=== PATIENT | male | born 1985 | race Caucasian/White ===

== ENCOUNTER 2017-02-12 11:31 | Inpatient (IN) ==
[2017-02-12] MEDS ORDERED: NS 1,000 ML IV ONE ×2 (12:00→12:50)
[2017-02-12] MEDS ORDERED: THIAMINE 200mg/2ml INJECTION IVP ONE (12:01)
[2017-02-12] MEDS ORDERED: ALBUTEROL/IPRATROPIUM 2.5mg-0.5mg/3ml NEB AEROSOL ONE (12:06)
--- NOTE | 2017-02-12 12:08 | Emergency Department Report ---
General Adult HPI - General Chief complaint: Substance Abuse Stated complaint: over dose,fallen,hand injury Time Seen by Provider: 02/12/17 11:55 - History of Present Illness HPI narrative: Patient was brought to the emergency department by his landlord. Apparently patient has been hospitalized in [place] for pneumonia and was just released 3 days ago. He is a heavy drinker, states drinks every day. After discharge from the hospital, patient states he started drinking vodka. Patient presents obviously inebriated with slurred speech. Serum alcohol level is 511. Patient' s room air saturations are 85% and lungs with crackles bilaterally. Patient states he smokes between 3 and 4 packs of cigarettes a day and also drinks liquor every day however is unsure of the amount. States he does have withdrawal seizures having the last seizure approximately 1 month ago. Patient hydrated and labs are checked. Chest x-ray was poor quality with no obvious infiltrate noted however patient remained tachycardic with room air sats of 85% so a CT scan was done. This did indicate probable pneumonia possibly in both lobes and probable mild pulmonary edema. Patient does not know for sure if he was discharged on any antibiotics however states that he is not currently taking any antibiotics post hospital discharge MD complaint: intoxication, recent pneumonia Onset (ago): day(s) Associated symptoms: cough - Related Data Home Medications Medication Instructions Recorded Confirmed Gabapentin 300 mg PO TID PRN 02/12/17 02/12/17 Lamotrigine [Lamictal] 100 mg PO HS 02/12/17 02/12/17 Lurasidone [Latuda] 40 mg PO DAILY 02/12/17 02/12/17 Methocarbamol [Robaxin] 500 mg PO BID PRN 02/12/17 02/12/17 Naltrexone [Revia] 50 mg PO PM 02/12/17 02/12/17 Sertraline [Zoloft] 125 mg PO DAILY 02/12/17 02/12/17 Allergies Allergy/AdvReac Type Severity Reaction Status Date / Time amoxicillin [From Augmentin] Allergy Severe Hives Verified 02/12/17 12:14 clavulanic acid Allergy Severe Hives Verified 02/12/17 12:14 [From Augmentin] Penicillins Allergy Severe Hives Verified 02/12/17 12:14 bismuth subsalicylate Allergy Unknown Verified 02/12/17 12:14 [From Pepto-Bismol] Review of Systems All systems: reviewed and negative except as stated Constitutional: Reports: weakness. Denies: fever, chills Eyes: Denies: eye pain, eye discharge ENT: Denies: ear pain, throat pain Cardiovascular: Denies: chest pain, palpitations Respiratory: Reports: as per HPI, cough Gastrointestinal: Denies: abdominal pain, nausea, vomiting, diarrhea Genitourinary: Denies: urgency Neurological: Denies: headache, weakness, numbness Allergic/Immunologic: Denies: facial swelling, urticaria PFSH Patient Stated Medical History Seizures Yes: 3 DAYS AGO Asthma Yes Pneumonia Yes Bipolar Disorder Yes Substance Use Disorder Yes - Social History Smoking status: Current every day smoker Physical Exam - General General appearance: alert, appears intoxicated, other (obviously inebriated) - Normal Exams: Head:: Normocephalic without trauma Eyes:: Pupils are PERRLA w/ EOMI, No scleral icterus, irritation, or foreign bodies noted Neck:: Full range of motion, without adenopathy, JVD, bruits or thyromegaly Cardiovascular:: Regular rate and rhythm, without murmur or gallop, Pulses 2+ all extremities, capillary refill, <2 seconds all extremities Abdomen:: Bowel sounds positive, soft, non-tender, non-distended, no hepatosplenomegaly, masses or bruits noted Lymphatic:: No lymphadenopathy, or lymphedema noted Musculoskeletal:: No tenderness, or deformity noted, good range of motion, all extremities Integumentary:: No rashes, hives, or bruising noted, hair and nails, without abnormality Neurological:: Patient is alert - Expanded Respiratory Exam Location: Left: rales, Right: rales, Upper: rales, Lower: rales Course - Reevaluation(s) Reevaluation #1: Patient ETOH level 511. Patient is eating and much more alert and talkative. Room air sats remain mid 80's and remains tachyl at 110. Due to prior hospitalization and dx of pneumonia, will obtain CTA to r/o PE. Reevaluation #2: CTA indicates mild pneumonia to right middle lobe and atelectasis or additional mild pneumonia in left upper lobe. In addition concern for Left ventricular enlargement and fatty metamorphosis of the liver. Patient remains hypoxic on room air with sats 85%; requires 2l/NC to keep sats above 93%. Hospitalist paged for possible admission. Vital Signs Temperature 98.3 F 02/12/17 11:35 Pulse Rate 105 H 02/12/17 11:35 Respiratory Rate 16 02/12/17 11:35 Blood Pressure 129/86 02/12/17 11:35 Pulse Oximetry 85 L 02/12/17 11:35 Temperature 98.3 F 02/12/17 11:35 Pulse Rate 103 H 02/12/17 14:15 Respiratory Rate 18 02/12/17 12:11 Blood Pressure 127/74 02/12/17 14:15 Pulse Oximetry 92 02/12/17 14:15 Medical Decision Making - MDM Narrative Medical decision making narrative: Patient recently discharged from that hospital with pneumonia, CT scan indicates pneumonia continues. Will start cefepime and Levaquin per HAP guidelines. Blood cultures, venous lactate and pro-calcitonin have already been drawn. Pro-calcitonin was normal, lactate elevated at 2.7. Patient stated ALLERGY to contrast medium so therefore was premedicated with Benadryl 50 mg and Solu-Medrol [address] scan. - Lab Data Result diagrams: 02/12/17 12:21 02/12/17 12:21 Lab Results 02/12/17 02/12/17 02/12/17 Range/Units 12:13 12:13 12:21 WBC 4.8 (4.5-11.0) T/MM3 RBC 4.35 L (4.50-5.90) M/MM3 Hgb 14.6 (13.5-17.5) GM/DL Hct 44.0 (41-53) % MCV 101.1 H (80-100) UM3 MCH 33.6 (26-34) UUG MCHC 33.2 (31-37) GM/DL RDW Std Deviation 50.3 H (36.9-50.2) FL Plt Count 268 (130-400) T/MM3 MPV 8.7 L (9.4-12.4) UM3 Immature Gran % (Auto) 0.2 (0.0-0.5) % Neut % (Auto) 55.3 (33-66) % Lymph % (Auto) 35.4 (23-45) % [place] % (Auto) 6.0 (0-9.0) % Eos % (Auto) 1.2 (0-4) % Baso % (Auto) 1.9 (0-2) % Neut # (Auto) 2.7 (1.8-7.7) T/MM3 Lymph # (Auto) 1.7 (1-4.8) T/MM3 [place] # (Auto) 0.3 (0-0.8) T/MM3 Eos # (Auto) 0.1 (0-0.5) T/MM3 Baso # (Auto) 0.1 (0-0.2) T/MM3 Abs Immat Gran (auto) 0.01 (0.00-0.03) T/MM3 Turbidity (0-20) Sodium (134-144) MEQ/L Potassium (3.6-5) MEQ/L Chloride (98-107) MEQ/L Carbon Dioxide (22-30) MEQ/L Anion Gap (5-15) MEQ/L BUN (9-20) MG/DL Creatinine (0.8-1.5) MG/DL GFR Calculation BUN/Creatinine Ratio (6-26) RATIO Glucose (75-110) MG/DL Calculated Osmolality (261-280) MOSM/KG Calcium (8.4-10.2) MG/DL Total Bilirubin (0.20-1.30) MG/DL Icterus Index (0-7) AST (17-59) U/L ALT (21-72) U/L Alkaline Phosphatase (38-126) U/L Total Protein (6.3-8.2) G/DL Albumin (3.5-5.0) G/DL Globulin (2.4-3.6) G/DL Albumin/Globulin Ratio (1.1-2.2) RATIO Lipase (23-300) U/L Plasma Lactate 2.7 H (0.6-2.2) MMOL/L Procalcitonin 0.05 NG/ML Specimen Hemolysis (0-25) Alcohol, Quantitative (<10) MG/DL 02/12/17 Range/Units 12:21 WBC (4.5-11.0) T/MM3 RBC (4.50-5.90) M/MM3 Hgb (13.5-17.5) GM/DL Hct (41-53) % MCV (80-100) UM3 MCH (26-34) UUG MCHC (31-37) GM/DL RDW Std Deviation (36.9-50.2) FL Plt Count (130-400) T/MM3 MPV (9.4-12.4) UM3 Immature Gran % (Auto) (0.0-0.5) % Neut % (Auto) (33-66) % Lymph % (Auto) (23-45) % [place] % (Auto) (0-9.0) % Eos % (Auto) (0-4) % Baso % (Auto) (0-2) % Neut # (Auto) (1.8-7.7) T/MM3 Lymph # (Auto) (1-4.8) T/MM3 [place] # (Auto) (0-0.8) T/MM3 Eos # (Auto) (0-0.5) T/MM3 Baso # (Auto) (0-0.2) T/MM3 Abs Immat Gran (auto) (0.00-0.03) T/MM3 Turbidity < 20 (0-20) Sodium 152 H (134-144) MEQ/L Potassium 3.9 (3.6-5) MEQ/L Chloride 108 H (98-107) MEQ/L Carbon Dioxide 27 (22-30) MEQ/L Anion Gap 17 H (5-15) MEQ/L BUN 9.0 (9-20) MG/DL Creatinine 0.7 L (0.8-1.5) MG/DL GFR Calculation 132 BUN/Creatinine Ratio 13 (6-26) RATIO Glucose 94 (75-110) MG/DL Calculated Osmolality 291 H (261-280) MOSM/KG Calcium 8.2 L (8.4-10.2) MG/DL Total Bilirubin 0.30 (0.20-1.30) MG/DL Icterus Index < 2 (0-7) AST 138 H (17-59) U/L ALT 156 H (21-72) U/L Alkaline Phosphatase 107 (38-126) U/L Total Protein 7.1 (6.3-8.2) G/DL Albumin 4.1 (3.5-5.0) G/DL Globulin 3.0 (2.4-3.6) G/DL Albumin/Globulin Ratio 1.4 (1.1-2.2) RATIO Lipase 290 (23-300) U/L Plasma Lactate (0.6-2.2) MMOL/L Procalcitonin NG/ML Specimen Hemolysis < 15 (0-25) Alcohol, Quantitative 511 (<10) MG/DL Disposition Clinical Impression: Pneumonia, Hypoxia, Intoxication Prescriptions: No Action Sertraline [Zoloft] 125 mg PO DAILY Lurasidone [Latuda] 40 mg PO DAILY Gabapentin 300 mg PO TID PRN PRN Reason: Prn Orders Naltrexone [Revia] 50 mg PO PM Lamotrigine [Lamictal] 100 mg PO HS Methocarbamol [Robaxin] 500 mg PO BID PRN PRN Reason: Muscle Pain - Seen By: midlevel
[2017-02-12] MEDS: SALINE FLUSH 10ml SYRINGE IVF PRN ×2 (12:37→13:35)
[2017-02-12] MEDS ORDERED: DiphenhydrAMINE 50 MG/ML INJECTION IVP ONE (13:31)
[2017-02-12] MEDS ORDERED: METHYLPREDNISOLONE SOD SUCC 125mg/2ml INJECTION IVP ONE (13:33)
[2017-02-12] MEDS ORDERED: IOHEXOL 350mg/ml 75ml INJECTION ONE (13:44)
[2017-02-12] MEDS ORDERED: NS 100 ML ONE (13:44)
[2017-02-12] MEDS ORDERED: SALINE FLUSH 10ml SYRINGE ONE (13:45)
[2017-02-12] MEDS ORDERED: CEFEPIME 1 GM in NS 100 ML IV ONE (14:44)
[2017-02-12] MEDS ORDERED: LEVOFLOXACIN PB 750 MG/150 ML BAG IV SCH (14:45)
[2017-02-12] MEDS ORDERED: OXAZEPAM 30 MG CAPSULE PO PRN (15:55)
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
[2017-02-12 16:18] VITALS: BMI 23.6
[2017-02-12] MEDS: ALBUTEROL/IPRATROPIUM 2.5mg-0.5mg/3ml NEB AEROSOL SCH ×2 (16:39→20:40)
[2017-02-12] MEDS: D5W 1,000 ML IV SCH (17:07)
[2017-02-12] MEDS ORDERED: TETANUS IM ONE (17:19)
[2017-02-12] MEDS ORDERED: DIPHTHERIA IM ONE (17:19)
[2017-02-13] MEDS: OXAZEPAM 30 MG CAPSULE PO PRN ×3 (00:16→22:22)
[2017-02-13] MEDS: D5W 1,000 ML IV SCH (03:56)
--- NOTE | 2017-02-13 08:48 | CT Scan Report ---
Indication: tachy, hypoxic ., recent hospitalization PROCEDURE: CT angio pulm emboli: Encounter: Initial Comparison: None Technique: Axial CT pulmonary angiographic phase images were performed through the chest after the administration of intravenous contrast. Coronal and Sagittal MIP reconstructed images were created and reviewed. Automated Exposure Control and Iterative Reconstruction dose reducing techniques were utilized. Contrast: Omnipaque 350 70 mL Findings: Pulmonary arteries: Exam is diagnostic to the subsegmental pulmonary arterial level. No filling defects identified to suggest a pulmonary embolus. Other findings: Linear atelectasis in the left upper lobe. Mild dependent atelectasis in the lower lobes. Small groundglass nodules in the right middle lobe could be infectious or inflammatory. No pleural effusion or pneumothorax. No axillary adenopathy. Small prevascular nodes are mildly enlarged. These could be reactive. Heart size is enlarged. No pericardial effusion. The upper abdomen shows severe fatty infiltration of the liver. Impression: 1. No pulmonary embolus. 2. Probable infectious or inflammatory infiltrates in the right middle lobe. 3. Cardiomegaly and fatty liver. There is a preliminary report by [facility]. .
--- NOTE | 2017-02-13 08:49 | XRay Report ---
Indication: pneumonia 3 days ago PROCEDURE: XR chest 1V: Encounter: Initial Comparison: Chest CT from the same date Findings: Linear atelectasis in the left upper lobe. The right middle lobe infiltrates are not apparent radiographically. The lungs are radiographically clear otherwise. No pleural effusion or pneumothorax. Cardiac silhouette is given limits of normal in size. Mediastinal contours and pulmonary vascularity appear normal. Impression: Left upper lobe atelectasis. .
--- NOTE | 2017-02-13 08:51 | XRay Report ---
Indication: fall PROCEDURE: XR hand LT min 3V: Encounter: Initial Comparison: None Findings: There is no acute fracture, dislocation or malalignment identified. Dense 1 to 2 mm foreign bodies adjacent to the long finger proximal phalanx and fifth metacarpal shaft. Impression: No acute osseous abnormality. Foreign bodies. .
[2017-02-13] MEDS: ALBUTEROL/IPRATROPIUM 2.5mg-0.5mg/3ml NEB AEROSOL SCH ×4 (09:19→21:10)
[2017-02-13] MEDS: LEVOFLOXACIN PB 750 MG/150 ML BAG IV SCH (09:20)
--- NOTE | 2017-02-13 10:05 | XRay Report ---
Indication: puncture wound PROCEDURE: XR foot LT 2V: Encounter: Initial Comparison: None Findings: There is no acute fracture, dislocation or malalignment identified. No radiopaque foreign body appreciated. Impression: No acute osseous abnormality. .
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
--- NOTE | 2017-02-13 11:54 | Progress Note ---
- Date 02/13/17 Subjective: Leo is seen today in follow up. He is sleeping, easily awakened. Reports feeling fairly well. Continues to demonstrate a cough, but denies SOA. He has obvious tremors with stretching, but denies them. Denies feeling "shaky" . Attempted to discuss discharge plans with him- he states he normally follows with the DC clinic in [facility]. States that they assist with him getting medications as outpatient. States that he has antibiotics, but cannot tells me what he has. Denies difficulty in obtaining meds, but cannot clearly me tell me how/where he gets medication- states "in [place]"- I understand that he has given varying answers in regards to the medications. He reports that his foot is "fine", no pain or tenderness. Chart is reviewed for additional information. Objective Vital signs: Temperature 98.6 F 02/13/17 07:36 Pulse Rate 92 02/13/17 08:14 Respiratory Rate 18 02/13/17 07:36 Blood Pressure 154/98 H 02/13/17 07:36 Pulse Oximetry 97 02/13/17 07:36 Rhythm: Normal Sinus Rhythm, Sinus Tachycardia Height/Weight/BMI: Height 1.83 m Weight 77.3 kg Body Mass Index 23.6 - Constitutional Present: mild distress, disheveled, cooperative Comments: Poor historian. Restless. Multiple tattoos, and appears to have healing self- cutting injuries on arms. - Routine HEENT Exam Head: Present: normocephalic, hematoma (small bruise left evangelical, appears old. ) Eye: Present: EOMI. Absent: periorbital ecchymosis, periorbital swelling, periorbital tenderness ENT: Present: mucous membranes dry - Routine Respiratory Exam Present: decreased breath sounds, rhonchi (occasional faint rhonchi is appreciated. ), diminished air movement. Absent: dyspnea, wheezes - Routine Cardiovascular Exam Present: RRR, S1, S2, no murmur - Routine Abdominal Exam Present: soft, normoactive bowel sounds, non distended, non tender - Routine Extremities Exam Present: no edema, non tender, full ROM, pulses intact - Routine Musculoskeletal Exam Musculoskeletal: Present: normal strength, no joint swelling, moving extremities well, other (Nail injury left foot- no redness, warmth, swelling.) - Routine Skin Exam Present: intact, dry, warm - Routine Neurological Exam Present: alert, moving all extremities, tremors - Routine Psychiatric Exam Present: cooperative. Absent: normal affect, normal thought process, good insight, good judgment Results - Labs CBC & Chem 7: 02/13/17 04:31 02/13/17 04:31 - Impressions FOOT Impression: No acute osseous abnormality. . Assessment and Plan (1) Intoxication Current visit: Yes Status: Acute (2) Sepsis Current visit: Yes Status: Acute (3) Pneumonia Current visit: Yes Status: Acute Assessment and Plan: Impression: Sepsis- Tachycardia, Hypoxia, Elevated lactate- 2.7 Pneumonia Result failure with hypoxemia-requiring 3-4 liters on admission Acute alcohol intoxication-present on admission Elevated LFTs Hypernatremia Hx of ETOH withdrawal seizure Mental Health DO Puncture wound left foot- nail (tD given) Hx Sz. DO Plan 02/13/17 *Continue Levaquin for CAP, left foot wound. Monitor for szs given hx and known ETOH abuse. Continue nebs. Assess viral resp panel and CXR. *Acute ETOH intoxication-improving. Repeat ETOH level for resolution confirmation. Check UDS. Labs are improving. Suspect elevated LFTS due to ETOH,but will assess Hep Panel due to multiple tattoos. Consulting psychiatry for assessment. Resume home mental health medications as appropriate. Start ETOH W/D orders. Mild-moderate W/D currently per CIWA. Continue PRN serax & Ativan. Add metoprolol due to developing HTN. May need to up-titrate. Add supportive b-vitamins. Check mag level. Add PPI due to increased risk of Gastritis. *Continue to monitor foot due to nail-related puncture wound. *Pt. does not want sz. prophylaxis tx. He does not drive. Transportation home will be an issue, and housing may be an issue as well. Will need SW involvement upon dismissal. D/W Dr. Duenas. DVT Prophylaxis: SCD's GI Prophylaxis: Protonix Resuscitation Status: Full Code - Physician Narrative Physician: Monty Duenas MD Narrative: Date: 02/13/17 Time: 1705 I have independently interviewed and examined pt. Chart reviewed. Case discussed with PROPERTIES SUPERVISOR. Care plan developed with my supervision; agree with above. Wants to make sure his lamictal and seroquel are restarted. His lamictal is listed on med rec. He says he takes 100 mg seroquel qHS. He c/o headache and says ibuprofen helps. He says his shaking is related to 2 TBIs more than alcohol. He has had 3 doses of Serax so far today. [facility] but says he has things to do first related to moving. Lungs: coarse, no use of accessory muscles. CV: tachy ABD: s/nt/nd EXT: no edema. recent puncture site on plantar aspect of left foot. No drainage or erythema. Abrasion to left palm. MSE: awake alert appropriate Plan: Levaquin for pneumonia and would cover foot puncture wound. Duoneb. Serax/iv ativan for etoh w/d or seizure. Seizure precautions Counseled on smoking cessation. Does not tolerate nicotine patch. Nicorette available. Will need SW assistance. Hospital Course Summary Disclaimer: The visit summary below is not to be considered part of the above Progress Note. Hospital Course: Impression: Sepsis- Tachycardia, Hypoxia, Elevated lactate- 2.7 Pneumonia Result failure with hypoxemia-requiring 3-4 liters on admission Acute alcohol intoxication-present on admission Elevated LFTs Hypernatremia Hx of ETOH withdrawal seizure Mental Health DO Puncture wound left foot- nail (tD given) Hx Sz. DO Plan 02/13/17 *Continue Levaquin for CAP, left foot wound. Monitor for szs given hx and known ETOH abuse. Continue nebs. Assess viral resp panel and CXR. *Acute ETOH intoxication-improving. Repeat ETOH level for resolution confirmation. Check UDS. Labs are improving. Suspect elevated LFTS due to ETOH,but will assess Hep Panel due to multiple tattoos. Consulting psychiatry for assessment. Resume home mental health medications as appropriate. Start ETOH W/D orders. Mild-moderate W/D currently per CIWA. Continue PRN serax & Ativan. Add metoprolol due to developing HTN. May need to up-titrate. Add supportive b-vitamins. Check mag level. *Continue to monitor foot due to nail-related puncture wound. *Pt. does not want sz. prophylaxis tx. He does not drive. Transportation home will be an issue, and housing may be an issue as well. Will need SW involvement upon dismissal. D/W Dr. Duenas.
[2017-02-13] MEDS: PANTOPRAZOLE 40 MG TABLET PO SCH (12:47)
[2017-02-13] MEDS: FOLIC ACID 1 MG TABLET PO SCH (12:47)
[2017-02-13] MEDS: MULTI-VITAMIN + MINERAL TABLET PO SCH (12:47)
[2017-02-13] MEDS ORDERED: IBUPROFEN 800 MG TABLET PO PRN (17:00)
[2017-02-13] MEDS ORDERED: LAMOTRIGINE 100 MG TABLET PO SCH (21:00)
[2017-02-13] MEDS ORDERED: QUETIAPINE 100 MG TABLET PO SCH (21:00)
[2017-02-14] MEDS: PANTOPRAZOLE 40 MG TABLET PO SCH (05:50)
[2017-02-14 07:48] VITALS: BP 152/113; TEMP 97
[2017-02-14] MEDS ORDERED: LURASIDONE 40mg TABLET PO SCH (08:00)
[2017-02-14] MEDS: FOLIC ACID 1 MG TABLET PO SCH (08:01)
[2017-02-14] MEDS: OXAZEPAM 30 MG CAPSULE PO PRN (08:01)
[2017-02-14] MEDS: LEVOFLOXACIN PB 750 MG/150 ML BAG IV SCH (08:01)
[2017-02-14] MEDS: SALINE FLUSH 10ml SYRINGE IVF PRN (08:02)
[2017-02-14] MEDS: MULTI-VITAMIN + MINERAL TABLET PO SCH (08:13)
[2017-02-14] MEDS: ALBUTEROL/IPRATROPIUM 2.5mg-0.5mg/3ml NEB AEROSOL SCH ×2 (08:20→11:36)
[2017-02-14 08:29] VITALS: O2SAT 97
[2017-02-14] MEDS ORDERED: SERTRALINE 50 MG TABLET PO SCH (09:00)
--- NOTE | 2017-02-14 11:00 | XRay Report ---
Indication: PNA XR chest 2V: Comparison: 02/12/2017 Technique: PA and lateral chest Findings: Since the previous study. Atelectasis in the left chest has cleared. Patient now shows normal heart, mediastinum and central vascularity and clear lungs. No acute bony findings appreciated. Impression: Unremarkable two-view chest. .
[2017-02-14 11:38] VITALS: RESP 14
--- NOTE | 2017-02-14 11:52 | Discharge Summary ---
Discharge Information Date of admission: 02/12/17 15:26 Anticipated date of discharge: 02/14/17 Attending Physician: Manuel Hdez MD Primary care physician: Dr German Booth- [place] Consults: Dr Haji- psychiatrist - Discharge Diagnosis (1) Intoxication Status: Acute (2) Sepsis Status: Acute (3) Pneumonia Status: Acute Sepsis- Tachycardia, Hypoxia, Elevated lactate- 2.7 Pneumonia Result failure with hypoxemia-requiring 3-4 liters on admission Acute alcohol intoxication-present on admission Elevated LFTs Hypernatremia Hx of ETOH withdrawal seizure - Procedures Procedures: None - Laboratory Labs: 02/14/17 04:23 02/14/17 04:23 - Microbiology Microbiology 02/12/17 12:21 Peripheral/Iv Start Blood Culture - Preliminary No Growth After 1 Day 02/12/17 12:14 Peripheral/Iv Start Blood Culture - Preliminary No Growth After 1 Day History of Present Illness HPI: Patient is a 31-year-old male who was brought to the emergency room today by his landlord for acute evaluation concerning alcohol intoxication. It ss reported that the patient was recently admitted to [facility] earlier this week and was discharged 3 days ago. He was discharged on PO antibiotics, however, reported that he was unable to fill them due to financial reasons. Patient reports he does not generally drink alcohol daily, however, yesterday his good friend whom which she served with in [facility] committed suicide. As a coping mechanism, he reports drinking multiple bottles of vodka today and acute alcohol level is 511. Further clinical evaluation done in the emergency room reveling right middle lobe pneumonia. She was found to be hypoxic on arrival, room air saturations 85%, tachycardia at 105. Patient does meet criteria for sepsis, accompanied with acute intoxication. The hospitalist services were contacted and accepted patient for inpatient admission for further evaluation and treatment. Objective Vital signs: Temperature 97 F 02/14/17 07:46 Pulse Rate 82 02/14/17 07:46 Respiratory Rate 14 02/14/17 11:36 Blood Pressure 152/113 H 02/14/17 07:46 Pulse Oximetry 97 02/14/17 08:20 Rhythm: Normal Sinus Rhythm, Sinus Tachycardia Height/Weight/BMI: Height 1.83 m Weight 74.9 kg Body Mass Index 23.6 - Constitutional Present: no acute distress, well nourished, well developed - Routine HEENT Exam Eye: Present: EOMI ENT: Present: mucous membranes moist, dentition normal - Routine Respiratory Exam Present: CTA bilaterally. Absent: wheezes - Routine Cardiovascular Exam Present: RRR, S1, S2. Absent: murmur - Routine Abdominal Exam Present: soft, normoactive bowel sounds, non distended. Absent: tenderness - Routine Extremities Exam Present: normal capillary refill - Routine Back/Spine/Pelvis Exam Back/Spine: Present: full ROM - Routine Skin Exam Present: dry, warm - Routine Neurological Exam Present: alert, oriented X3, CN II-XII intact, moving all extremities - Routine Lymphatic Exam Lymphatic: Absent: adenopathy - Routine Psychiatric Exam Present: normal affect, cooperative Hospital Course This is a general summary of the patient's hospital course. For more details refer to the complete medical record. Hospital course: Impression: Sepsis- Tachycardia, Hypoxia, Elevated lactate- 2.7 Pneumonia Result failure with hypoxemia-requiring 3-4 liters on admission Acute alcohol intoxication-present on admission Elevated LFTs Hypernatremia Hx of ETOH withdrawal seizure Mental Health DO Puncture wound left foot- nail (tD given) Hx Sz. DO 02/12/17 Admit patient to inpatient status under the care of Dr. Duenas for sepsis, pneumonia with hypoxia, acute alcohol intoxication She does meet sepsis criteria. Given tachycardia, elevated venous lactate and presence of infection. Patient was started on IV cefepime and Levaquin in the emergency room. Blood cultures were obtained. Patient was given 2 liters of IV fluid for hydration. Will continue with IV Levaquin daily. Continue to monitor serial venous lactate levels. Scheduled Duoneb breathing tx QID, and oxygen to keep saturations greater than 92% Place patient on seizure precautions given. Known history of alcohol withdrawal seizures. Serax available as needed. Psychiatric consultation placed to Dr. Haji. Concerned that patient is at high risk for depression and suicidal ideation. Given current situation of friends suicide yesterday. Given hypernatremia ,Will place patient on D5W 100 ML per hour for gentle hydration and monitor electrolytes. Regular diet SCDs to bilateral lower extremity for DVT prophylaxis Will follow routine labs. Further orders and plan of care discussed with attending, Dr. Duenas 02/13/17 *Continue Levaquin for CAP, left foot wound. Monitor for szs given hx and known ETOH abuse. Continue nebs. Assess viral resp panel and CXR. *Acute ETOH intoxication-improving. Repeat ETOH level for resolution confirmation. Check UDS. Labs are improving. Suspect elevated LFTS due to ETOH,but will assess Hep Panel due to multiple tattoos. Consulting psychiatry for assessment. Resume home mental health medications as appropriate. Start ETOH W/D orders. Mild-moderate W/D currently per CIWA. Continue PRN serax & Ativan. Add metoprolol due to developing HTN. May need to up-titrate. Add supportive b-vitamins. Check mag level. *Continue to monitor foot due to nail-related puncture wound. *Pt. does not want sz. prophylaxis tx. He does not drive. Transportation home will be an issue, and housing may be an issue as well. Will need SW involvement upon dismissal. D/W Dr. Duenas. 02/14/17- Discharge Andria is seen and examined today. He states that he is feeling good and is off oxygen. His breathing is better and he denies having pain. He is eager to be discharged given that he is suppose to have all his things out of his apt today. We discussed importance of completing antibiotic course for 4 additional days. He does verify that he does have prescription coverage. Also encouraged him to follow-up with his primary care provider in [place], Dr. German Booth. Patient started on metoprolol twice a day given hypertension. Continue on usual home medications, avoid tobacco use and use OTC vitamins. Time spent with patient: discharge greater than 30 minutes Discharge Plan - Discharge Disposition Discharge Date: 02/14/17 Disposition: Discharged Home, Self-Care *Condition: Reason For Visit (Visit label in EMR): Sepsis, Pneumonia, Hypoxia, hypertension - Discharge Medications *Discharge Medications: New Metoprolol Tartrate [Lopressor] 12.5 mg PO BIDWM #30 tab Ciprofloxacin [Cipro] 500 mg PO BID 4 Days #8 tab Multi-Vitamin + Mineral [Therapeutic - M] 1 tab PO DAILY tab Continue Sertraline [Zoloft] 125 mg PO DAILY Lurasidone [Latuda] 40 mg PO DAILY Gabapentin 300 mg PO TID PRN PRN Reason: Prn Orders Naltrexone [Revia] 50 mg PO PM Lamotrigine [Lamictal] 100 mg PO HS Methocarbamol [Robaxin] 500 mg PO BID PRN PRN Reason: Muscle Pain - Discharge Packet/Instructions *Diet: Regular *Activity: As Tolerated *Pain Management/Treatment: Tylenol as needed for pain *Wound Care: None Additional Instructions: Take Cipro antiobiotic twice a day for 4 more days for treatment of Pneumonia. Metrololol is a new medications for your elevated blood pressure take twice *Expected Signs/Symptoms: Improvement if coughing *Notify Physician if: fever, chills, worsening shortness of breath or chest pain *During Business Hours Contact: Dr Booth's office *After Business Hours Contact: Present to the ER *Pending Lab/Results: No Pending Lab - Referrals/Follow Up *Referrals/Follow Up: Bandar Booth [Physician] - (Please follow up with Dr Booth in 1 week ANDRIA HAS APPOINTMENT ON 02/16.) - Patient Handouts Patient Handouts: Sepsis (GEN), Pneumonia (GEN) Physician Narrative - Narrative Physician: Manuel Hdez MD Attestation Narrative: Date: 02/14/17 Time: 1205 I have independently interviewed and examined patient prior to discharge. Case discussed with CM and my CASINO BANKER. Care plan developed with my supervision; agree with above. Doing well this morning. Breathing much improved. Not feeling SOA or congested. Little cough. No pain with breathing. Strength improved-denies feeling dizzy or unsteady when up. Eating well. No ab pain or nausea. Bowel stable. Feels ready for discharge. CV: tachy, regular Lungs: clear bilaterally, no distress on RA. MSE: awake alert appropriate Plan: Will discharge to home-medically stable. See discharge orders for details.
[2017-02-14 12:47] VITALS: PULSE 90
== END 2017-02-14 14:00 | disposition home or self-care (01) | DRG 871 ==
LOC: ED 11:31 → MED 15:26 → SUATTDRO 15:26 → MED 16:15
PROVIDERS: ADMIT Hospitalist; ATTEND Hospitalist